=== PATIENT | male | born 1995 | race Caucasian/White ===

== ENCOUNTER 2019-06-16 14:04 | Emergency (ER) | payer OTHER ==
[~2019-06-16 14:04] MED LIST: ALBUTEROL0.09 MG/A2 IH; ALBUTEROL2.5 MG/0.5 INH; CEFDINIR250 MG/5 M PO; DELTASONE20 M1 PO; MOTRIN CHI100 MG/51 PO; MOTRIN400 MG PO; NASAL SPRAY 3030 M1 NAS; Tobradex 0.3-0.15 ML OPH; ZITHROMAX Z PA250 MG PO; ZOFRAN ODT4 MG SL; ZYRTEC10 M1 PO; Zofran4 MG PO
[2019-06-16 14:12] VITALS: BP 141/84
== END 2019-06-16 16:13 | disposition home or self-care (01) ==
LOC: ED 14:04
DX: B34.9 Viral infection, unspecified (principal); J45.909 Unspecified asthma, uncomplicated; F17.200 Nicotine dependence, unspecified, uncomplicated; Z79.899 Other long term (current) drug therapy